=== PATIENT | female | born 1985 | race Two or more races ===

== ENCOUNTER 2021-10-10 13:06 | Emergency (ER) | payer MEDICAID ==
[~2021-10-10] VITALS: Ht 154.9 cm; Wt 54.4 kg
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
--- NOTE | 2021-10-10 13:35 | NUR ---
ua sent to lab
[2021-10-10] MEDS ORDERED: diphenhydrAMINE HCL 50 MG/ML VIAL IV ONE (14:00)
[2021-10-10] MEDS ORDERED: IV NS 0.9% 1,000 ML BAG IV ONE (14:00)
[2021-10-10] MEDS ORDERED: ACETAMINOPHEN ES 500 MG TABLET PO ONE (14:00)
[2021-10-10] MEDS ORDERED: PROCHLORPERAZINE EDISYLATE 10 MG/2 ML VIAL IM/IV ONE (14:00)
[2021-10-10] MEDS ORDERED: diphenhydrAMINE HCL 50 MG/ML VIAL ONE (14:14)
[2021-10-10] MEDS ORDERED: PROCHLORPERAZINE EDISYLATE 10 MG/2 ML VIAL ONE (14:14)
[2021-10-10] MEDS ORDERED: ACETAMINOPHEN ES 500 MG TABLET ONE (14:14)
--- NOTE | 2021-10-10 14:39 | NUR ---
to ct scan of head
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
[2021-10-10 15:45] VITALS: BP 125/56
== END 2021-10-10 15:53 | disposition home or self-care (01) ==
LOC: ER 13:09
DX: R51.9 Headache, unspecified (principal)
CPT/HCPCS: 99284; 96374; 70450; 96361; 96375; 84703; J0780; J1200; J7030